=== PATIENT | female | born 1995 | race African-American/Black ===

== ENCOUNTER 2016-03-10 22:13 | Emergency (ER) | payer OTHER ==
[~2016-03-10] VITALS: Ht 165.1 cm; Wt 70.0 kg
[~2016-03-10 22:13] MED LIST: TRAZ50TA78 PO
[2016-03-10 22:15] VITALS: BP 128/72; PULSE 98; RESP 15; TEMP 98.8; O2SAT 99
[2016-03-10] MEDS ORDERED: SODIUM CHLOR 0.9% 1000 ML INJ 1,000 ML IV SCH (22:29)
[2016-03-10] MEDS ORDERED: KETOROLAC TROMETHAMINE 30 MG/ML (IVP) VIAL IVP ONE (22:30)
[2016-03-10] MEDS ORDERED: LIDOCAINE VISCOUS 2% SOLN 15 ML UDC PO ONE (22:30)
[2016-03-10] MEDS ORDERED: ALUMINUM/MAGNESIUM/SIMETH 30 ML CUP PO ONE (22:30)
[2016-03-10] MEDS ORDERED: ONDANSETRON HCL 4 MG/2 ML VIAL IVP ONE (22:30)
--- NOTE | 2016-03-10 22:40 | PD ---
HPI Chief Complaint: Abdominal Pain Time Seen by Provider: 22:36 Travel History International Travel<30 days: No Contact w/Intl Traveler<30days: No Traveled to known affect area: No History of Present Illness HPI 20-year-old female that presents to the ED for evaluation of epigastric and lower abdominal pain that she's had for the past 3 days. Per patient she cannot keep anything down. The patient she also has diarrhea which is liquidy. Per patient she denies eating anything new. Per patient she's had her appendix removed as well as hospital in [facility] and ever since she's been having some abdominal discomfort. Per patient she's never had the nausea and vomiting. Per patient she's been vomiting multiple times. She denies any chest pain or shortness of breath. Per patient abdominal pain is severe at 7 out of 10. Per patient she still has some Percocet from her surgery and she's been taking it with some relief. She has no allergies to medication. She has not seen anybody for this new pain. Per patient she still has her gallbladder. Per patient about 2 weeks ago she had the similar symptoms when she had her menses and she thought that he was all related to her cramps. Per patient he also went away. She denies state they get better control. She was any vaginal discharge or bleeding. She states that the pain stays mainly on the epigastric area but she also has some lower abdominal pain. PFSH Past Medical History ADHD: No Cancer: No Diabetes: No Diminished Hearing: No Headaches: Yes Psychiatric: No Immunizations Current: Yes Migraines: No Seizures: No Thyroid Disease: No Ulcer: No ?: Not LMP: 02/24/2016 : 0 Past Surgical History Appendectomy: No Cholecystectomy: No Other Surgery: Yes (RIGHT AXILLA SURGERY) Social History Alcohol Use: No Tobacco Use: No Substance Use: No Allergies-Medications (Allergen,Severity, Reaction): Coded Allergies: No Known Allergies (Verified , 03/10/16) Reported Meds & Prescriptions Reported Meds & Active Scripts Active No Active Prescriptions or Reported Medications Review of Systems Except as stated in HPI: all other systems reviewed are Neg Physical Exam Narrative GENERAL: SKIN: Warm and dry. HEAD: Atraumatic. Normocephalic. EYES: Pupils equal and round. No scleral icterus. No injection or drainage. ENT: No nasal bleeding or discharge. Mucous membranes pink and moist. NECK: Trachea midline. No JVD. CARDIOVASCULAR: Regular rate and rhythm. RESPIRATORY: No accessory muscle use. Clear to auscultation. Breath sounds equal bilaterally. GASTROINTESTINAL: Abdomen soft, tender with deep palpation in the epigastric and right upper quadrant as well as the lower quadrants, nondistended. Hepatic and splenic margins not palpable. MUSCULOSKELETAL: Extremities without clubbing, cyanosis, or edema. No obvious deformities. Full range of motion of the upper and lower extremities bilaterally. 2+ pulses bilaterally. NEUROLOGICAL: Awake and alert. No obvious cranial nerve deficits. Motor grossly within normal limits. Five out of 5 muscle strength in the arms and legs. Normal speech. PSYCHIATRIC: Appropriate mood and affect; insight and judgment normal. Data Data Last Documented VS Vital Signs Date Time Temp Pulse Resp B/P Pulse Ox O2 Delivery O2 Flow Rate FiO2 03/10/16 22:15 98.8 98 15 128/72 99 Room Air Orders Complete Blood Count With Diff (03/10/16 22:29) Comprehensive Metabolic Panel (03/10/16 22:29) Lipase (03/10/16 22:29) Urinalysis - C+S If Indicated (03/10/16 22:29) Iv Access Insert/Monitor (03/10/16 22:29) Ondansetron Inj (Zofran Inj) (03/10/16 22:30) Sodium Chlor 0.9% 1000 Ml Inj (Ns 1000 M (03/10/16 22:29) Ketorolac Inj (Toradol Inj) (03/10/16 22:30) Ed Urine Pregnancytest Poc (03/10/16 22:29) Us Abdomen Gallbladder (03/10/16 22:30) Al-Mag Hy-Si 40-40-4 Mg/Ml Liq (Mag-Al P (03/10/16 22:30) Lidocaine 2% Viscous (Xylocaine 2% Visco (03/10/16 22:30) MDM Medical Decision Making Medical Screen Exam Complete: Yes Emergency Medical Condition: Yes Medical Record Reviewed: Yes Differential Diagnosis Abdominal pain versus diarrhea versus nausea and vomiting versus epigastric pain versus cholecystitis versus cholelithiasis versus pancreatitis versus acute on chronic pain Narrative Course 20-year-old female that presents to the ED for evaluation of abdominal discomfort. Patient was properly examined and was found to have signs and symptoms consistent with acute.. Unclear etiology at this time. Patient does have some tenderness to palpation on exam concerning for possible gallbladder disease. Recommendations transfer labs and imaging. Patient was given IV pain medications and fluids. Labs and imaging showed Scripts No Active Prescriptions or Reported Meds Benigno Fried Mar 10, 2016 22:40
[2016-03-10 23:14] LABS: AUTOMATED NEUTROPHIL # 4.6 TH/MM3 (1.8-7.7); BASOPHIL % 0.5 % (0.0-2.0); EOSINOPHIL # 0.1 TH/MM3 (0-0.4); EOSINOPHIL % 1.5 % (0.0-4.0); HEMATOCRIT 39.6 % (35.0-46.0); HEMO FLAGS DIFF FINAL; LYMPH % 26.8 % (9.0-44.0); LYMPHOCYTE # 1.9 TH/MM3 (1.0-4.8); MEAN CELL VOLUME 89.3 FL (80.0-100.0); MEAN CORPUSCULAR HEMOGLOBIN 30.3 PG (27.0-34.0); MEAN CORPUSCULAR HGB CONC 33.9 % (32.0-36.0); MONO % 6.6 % (0.0-8.0); NEUT % 64.6 % (16.0-70.0); PLATELET COUNT 263 TH/MM3 (150-450); RED BLOOD COUNT 4.43 MIL/MM3 (4.00-5.30); RED CELL DISTRIBUTION WIDTH 12.8 % (11.6-17.2); WHITE BLOOD COUNT 7.1 TH/MM3 (4.0-11.0)
[2016-03-10 23:30] LABS: BACTERIA, URINE RARE /hpf; BLOOD, URINE NEG (NEG); COMMENT (UR) CULT NOT INDICATED; CULTURE IF INDICATED CULT NOT INDICATED; GLUCOSE,URINE NEG (NEG); KETONE, URINE NEG (NEG); MUCUS URINE FEW /lpf (OCC); NITRITE,URINE NEG (NEG); SQUAMOUS EPITHELIAL CELL URINE 32 /hpf (0-5); URINE COLOR YELLOW (YELLW/STRAW)
--- NOTE | 2016-03-10 23:31 | RADRPT ---
EXAM DATE/TIME: 03/10/2016 22:46 [facility] COMPARISON: No previous studies available for comparison. INDICATIONS : Vomitting. MEDICAL HISTORY : Increased appetite. SURGICAL HISTORY : Appendectomy. Breast tissue removal under right armpit. ENCOUNTER: Initial ACUITY: 1 week PAIN SCORE: 7/10 LOCATION: Right upper quadrant MEASUREMENTS: LIVER: 15.8 cm length COMMON DUCT: 4 mm RIGHT KIDNEY: 12.2 x 5.5 x 4.1 cm FINDINGS: LIVER: Normal echotexture without focal lesion or ductal dilatation. There is normal flow velocity and direc tion in the main portal vein. COMMON DUCT: No intraluminal mass or stone visualized. GALLBLADDER: Contains no stones, demonstrates no wall thickening or pericholecystic fluid. PANCREAS: The visualized portions are within normal limits. RIGHT KIDNEY: No evidence of hydronephrosis, stone, or mass. CONCLUSION: Normal gallbladder and other right upper quadrant structures. Jose Juan Espitia MD on March 10, 2016 at 23:29 Board Certified Radiologist. This report was verified electronically.
[2016-03-10 23:35] VITALS: BP 132/70; PULSE 90; RESP 14; O2SAT 100
[2016-03-10 23:41] LABS: ANION GAP 8 MEQ/L (5-15); AST (GOT) 15 U/L (15-37); BICARBONATE 29.3 MEQ/L (21.0-32.0); BLOOD UREA NITROGEN 8 MG/DL (7-18); CHLORIDE 100 MEQ/L (98-107); GLOMERULAR FILTRATION RATE 96 ML/MIN (>89); POTASSIUM 3.6 MEQ/L (3.5-5.1); SODIUM (NA) 137 MEQ/L (136-145)
[2016-03-10 23:45] LABS: ALKALINE PHOSPHATASE 52 U/L (45-117); ALT (GPT) 21 U/L (10-53); TOTAL BILIRUBIN ADULT 0.3 MG/DL (0.2-1.0)
[2016-03-10] MEDS ORDERED: ZOFR4TAB3 SL (23:59)
--- NOTE | 2016-03-11 | PD ---
Data Data Last Documented VS Vital Signs Date Time Temp Pulse Resp B/P Pulse Ox O2 Delivery O2 Flow Rate FiO2 03/10/16 23:35 90 14 132/70 100 Room Air 03/10/16 22:15 98.8 Orders Complete Blood Count With Diff (03/10/16 22:29) Comprehensive Metabolic Panel (03/10/16 22:29) Lipase (03/10/16 22:29) Urinalysis - C+S If Indicated (03/10/16 22:29) Iv Access Insert/Monitor (03/10/16 22:29) Ondansetron Inj (Zofran Inj) (03/10/16 22:30) Sodium Chlor 0.9% 1000 Ml Inj (Ns 1000 M (03/10/16 22:29) Ketorolac Inj (Toradol Inj) (03/10/16 22:30) Ed Urine Pregnancytest Poc (03/10/16 22:29) Us Abdomen Gallbladder (03/10/16 22:30) Al-Mag Hy-Si 40-40-4 Mg/Ml Liq (Mag-Al P (03/10/16 22:30) Lidocaine 2% Viscous (Xylocaine 2% Visco (03/10/16 22:30) Dicyclomine (Bentyl) (03/11/16 00:15) Al-Mag Hy-Si 40-40-4 Mg/Ml Liq (Mag-Al P (03/11/16 00:15) Lidocaine 2% Viscous (Xylocaine 2% Visco (03/11/16 00:15) Labs Laboratory Tests Test 03/10/16 22:51 White Blood Count 7.1 TH/MM3 Red Blood Count 4.43 MIL/MM3 Hemoglobin 13.4 GM/DL Hematocrit 39.6 % Mean Corpuscular Volume 89.3 FL Mean Corpuscular Hemoglobin 30.3 PG Mean Corpuscular Hemoglobin 33.9 % Concent Red Cell Distribution Width 12.8 % Platelet Count 263 TH/MM3 Mean Platelet Volume 8.0 FL Neutrophils (%) (Auto) 64.6 % Lymphocytes (%) (Auto) 26.8 % Monocytes (%) (Auto) 6.6 % Eosinophils (%) (Auto) 1.5 % Basophils (%) (Auto) 0.5 % Neutrophils # (Auto) 4.6 TH/MM3 Lymphocytes # (Auto) 1.9 TH/MM3 Monocytes # (Auto) 0.5 TH/MM3 Eosinophils # (Auto) 0.1 TH/MM3 Basophils # (Auto) 0.0 TH/MM3 CBC Comment DIFF FINAL Differential Comment Urine Color YELLOW Urine Turbidity HAZY Urine pH 7.0 Urine Specific [place] 1.028 Urine Protein 30 mg/dL Urine Glucose (UA) NEG mg/dL Urine Ketones NEG mg/dL Urine Occult Blood NEG Urine Nitrite NEG Urine Bilirubin NEG Urine Urobilinogen 2.0 MG/DL Urine Leukocyte Esterase NEG Urine RBC 3 /hpf Urine WBC 3 /hpf Urine Squamous Epithelial 32 /hpf Cells Urine Bacteria RARE /hpf Urine Mucus FEW /lpf Microscopic Urinalysis Comment CULT NOT INDICATED Sodium Level 137 MEQ/L Potassium Level 3.6 MEQ/L Chloride Level 100 MEQ/L Carbon Dioxide Level 29.3 MEQ/L Anion Gap 8 MEQ/L Blood Urea Nitrogen 8 MG/DL Creatinine 0.89 MG/DL Estimat Glomerular Filtration 96 ML/MIN Rate Random Glucose 99 MG/DL Calcium Level 8.8 MG/DL Total Bilirubin 0.3 MG/DL Aspartate Amino Transf 15 U/L (AST/SGOT) Alanine Aminotransferase 21 U/L (ALT/SGPT) Alkaline Phosphatase 52 U/L Total Protein 8.0 GM/DL Albumin 3.9 GM/DL Lipase 77 U/L [facility] Medical Record Reviewed: Yes Supervised Visit with [place]: Yes Narrative Course CBC & BMP Diagram 03/10/16 22:51 LFTs normal Lipase normal UA normal Last 24 hours Impressions Gall Bladder Ultrasound 03/10/160 Signed Impressions: Service Date/Time: Thursday, March 10, 2016 22:46 - CONCLUSION: Normal gallbladder and other right upper quadrant structures. Jose Juan Espitia MD The patient is resting comfortably and feels better, is alert and in no distress. The patients results and examination findings were discussed. The repeat examination is unremarkable and benign. The history, exam, diagnostic testing, and current condition do not suggest any significant pathology to warrant further testing, continued ED treatment, admission, or surgical evaluation at this point. The vital signs have been stable. The patient does not have uncontrollable pain, intractable vomiting, or other significant symptoms. The patient's condition is stable and appropriate for discharge. The patient will pursue further outpatient evaluation with a primary care physician or other designated or consulting physician as indicated in the discharge instructions. The patient expressed understanding and was agreeable with this plan. Diagnosis Primary Impression: Abdominal pain Qualified Code: R10.13 - Epigastric pain Referrals: Primary Care Physician 2 days Additional Instruction: You have a choice when it comes to health care, and we are glad that you chose [facility]. Hopefully, we have met your expectations on today's visit. You are welcome to return to [facility] at any time, as we are committed to meeting the health care needs of our community. Med/Other Pt SpecificInfo: Prescription(s) given Scripts Tramadol 50 Mg Tab50 Mg PO Q8H PRN (PAIN SCALE 6 TO 10) #20 TAB Ref 0 Prov:Emory Black MD 03/11/16 Dicyclomine (Bentyl)10 Mg Cap10 Mg PO TID PRN (Bowel Management) #30 CAP Ref 0 Prov:Emory Black MD 03/11/16 Ondansetron Odt (Zofran Odt)4 Mg Tab4 Mg SL Q8HR PRN (Nausea/Vomiting) #14 TAB Ref 0 Prov:Emory Black MD 03/10/16 Disposition: 01 DISCHARGE HOME Condition: Stable Emory Black MD Mar 11, 2016 00:00
[2016-03-11] MEDS ORDERED: TRAM50TA PO (00:10)
[2016-03-11] MEDS ORDERED: DICY10 PO (00:10)
[2016-03-11] MEDS ORDERED: LIDOCAINE VISCOUS 2% SOLN 15 ML UDC PO ONE (00:15)
[2016-03-11] MEDS ORDERED: DICYCLOMINE HCL 10 MG CAP PO ONE (00:15)
[2016-03-11] MEDS ORDERED: ALUMINUM/MAGNESIUM/SIMETH 30 ML CUP PO ONE (00:15)
== END 2016-03-11 00:34 | disposition home or self-care (01) ==
LOC: NEPE 22:13
DX: R10.13 Epigastric pain (principal)
CPT/HCPCS: 76705; 80053; 81001; 83690; 84703; 85025; 96361; 96374; 96375; 99284; J1885; J2405; J7030

== ENCOUNTER 2016-04-14 22:03 | Emergency (ER) | payer OTHER ==
[~2016-04-14] VITALS: Ht 165.1 cm; Wt 70.5 kg
[~2016-04-14 22:03] MED LIST changes: +DICY10 PO; +TRAM50TA PO; -TRAZ50TA78 PO; +ZOFR4TAB3 SL
[2016-04-14 22:05] VITALS: BP 126/67; PULSE 91; RESP 14; TEMP 98.6; O2SAT 100
== END 2016-04-14 22:56 | disposition left against medical advice (07) ==
LOC: NED 22:03
DX: R10.9 Unspecified abdominal pain (principal); Z53.21 Procedure and treatment not carried out due to patient leaving prior to being seen by health care provider
CPT/HCPCS: 99281

== ENCOUNTER 2016-08-14 23:56 | Emergency (ER) | payer OTHER ==
[2016-08-14 23:58] VITALS: BP 102/66; PULSE 73; RESP 16; TEMP 98.2; O2SAT 100
== END 2016-08-15 00:37 | disposition left against medical advice (07) ==
LOC: NED 23:56
DX: R42 Dizziness and giddiness (principal)
CPT/HCPCS: 99281